=== PATIENT | male | born 1975 | race African-American/Black ===

== ENCOUNTER 2019-09-09 16:40 | Emergency (ER) | payer MEDICAID ==
[~2019-09-09] VITALS: Ht 182.9 cm; Wt 76.0 kg
[2019-09-09 17:09] VITALS: BP 131/83
== END 2019-09-09 17:10 | disposition home or self-care (01) ==
LOC: ER 16:40
DX: J45.909 Unspecified asthma, uncomplicated (principal)
CPT/HCPCS: 99282; 99283

== ENCOUNTER 2019-10-12 15:53 | Emergency (ER) | payer MEDICAID ==
[~2019-10-12] VITALS: Ht 182.9 cm; Wt 79.0 kg
[2019-10-12 16:06] VITALS: BP 130/78
[2019-10-12] MEDS ORDERED: ALBU18HF2 IH (16:08)
[2019-10-12] MEDS ORDERED: ALBUTEROL 6.7GM HFA INHALER ORI ONE (16:45)
[2019-10-12] MEDS ORDERED: PREDNISONE 20MG TABLET PO ONE (16:45)
== END 2019-10-12 17:18 | disposition home or self-care (01) ==
LOC: ER 15:53
DX: Z76.0 Encounter for issue of repeat prescription (principal); J45.901 Unspecified asthma with (acute) exacerbation
CPT/HCPCS: 99283; Z7610

== ENCOUNTER 2019-12-08 09:14 | Emergency (ER) | payer SELFPAY ==
[~2019-12-08] VITALS: Ht 182.9 cm; Wt 80.0 kg
[~2019-12-08 09:14] MED LIST: ALBU18HF2 IH
[2019-12-08 09:22] VITALS: BP 152/97
== END 2019-12-08 10:13 | disposition home or self-care (01) ==
LOC: ER 09:14
DX: J45.909 Unspecified asthma, uncomplicated (principal); Z76.0 Encounter for issue of repeat prescription
CPT/HCPCS: 99283

== ENCOUNTER 2020-01-09 07:54 | Emergency (ER) | payer MEDICAID ==
[~2020-01-09] VITALS: Ht 182.9 cm; Wt 80.0 kg
[2020-01-09 09:04] VITALS: BP 127/88
== END 2020-01-09 09:06 | disposition home or self-care (01) ==
LOC: ER 07:54
DX: Z76.0 Encounter for issue of repeat prescription (principal); J45.909 Unspecified asthma, uncomplicated
CPT/HCPCS: 99283

== ENCOUNTER 2020-04-28 16:56 | Emergency (ER) | payer MEDICAID ==
[~2020-04-28] VITALS: Ht 182.9 cm; Wt 78.0 kg
[2020-04-28] MEDS ORDERED: ALBUTEROL 6.7GM HFA INHALER ORI ONE (17:30)
[2020-04-28 18:11] VITALS: BP 129/64
== END 2020-04-28 18:18 | disposition home or self-care (01) ==
LOC: ER 17:10
DX: Z76.0 Encounter for issue of repeat prescription (principal); J45.909 Unspecified asthma, uncomplicated
CPT/HCPCS: 99283; Z7610

== ENCOUNTER 2020-06-25 05:03 | Emergency (ER) | payer MEDICAID ==
[~2020-06-25] VITALS: Ht 182.9 cm; Wt 79.0 kg
[2020-06-25 05:22] VITALS: BP 117/84
[2020-06-25] MEDS ORDERED: ALBU6.7H9 INH (05:29)
[2020-06-25] MEDS ORDERED: ALBU05 NEB (05:29)
== END 2020-06-25 05:39 | disposition home or self-care (01) ==
LOC: ER 05:13
DX: J45.901 Unspecified asthma with (acute) exacerbation (principal); R03.0 Elevated blood-pressure reading, without diagnosis of hypertension; Z76.0 Encounter for issue of repeat prescription; Z87.891 Personal history of nicotine dependence
CPT/HCPCS: 99283

== ENCOUNTER 2020-08-07 17:16 | Emergency (ER) | payer MEDICAID ==
[~2020-08-07] VITALS: Ht 182.9 cm; Wt 77.0 kg
[~2020-08-07 17:16] MED LIST changes: +ALBU05 NEB; +ALBU6.7H9 INH
[2020-08-07] MEDS ORDERED: ALBU2.5V13 NEB (18:25)
[2020-08-07] MEDS ORDERED: ALBU6.7H9 INH (18:25)
[2020-08-07 18:40] VITALS: BP 157/97
== END 2020-08-07 18:41 | disposition home or self-care (01) ==
LOC: ER 17:38
DX: Z76.0 Encounter for issue of repeat prescription (principal); J45.909 Unspecified asthma, uncomplicated; F17.200 Nicotine dependence, unspecified, uncomplicated
CPT/HCPCS: 99283

== ENCOUNTER 2020-11-09 11:31 | Emergency (ER) | payer MEDICAID ==
[~2020-11-09] VITALS: Ht 182.9 cm; Wt 85.0 kg
[~2020-11-09 11:31] MED LIST changes: +ALBU2.5V13 NEB
[2020-11-09 11:52] VITALS: BP 150/99
[2020-11-09] MEDS ORDERED: ALBU2.5V13 NEB (12:28)
[2020-11-09] MEDS ORDERED: ALBU6.7H9 INH (12:28)
== END 2020-11-09 12:54 | disposition home or self-care (01) ==
LOC: ER 12:11
DX: Z76.0 Encounter for issue of repeat prescription (principal); J45.909 Unspecified asthma, uncomplicated
CPT/HCPCS: 99283

== ENCOUNTER 2021-03-05 04:49 | Emergency (ER) | payer MEDICAID ==
[~2021-03-05] VITALS: Ht 182.9 cm; Wt 79.0 kg
[2021-03-05 04:56] VITALS: BP 129/66
[2021-03-05] MEDS ORDERED: ALBU6.7H9 INH (05:15)
[2021-03-05] MEDS ORDERED: ALBU2.5V13 NEB (05:15)
== END 2021-03-05 05:43 | disposition home or self-care (01) ==
LOC: ER 05:19
DX: Z76.0 Encounter for issue of repeat prescription (principal); J45.909 Unspecified asthma, uncomplicated
CPT/HCPCS: 99281; 99283

== ENCOUNTER 2022-02-06 04:54 | Emergency (ER) | payer MEDICAID ==
[~2022-02-06] VITALS: Ht 180.3 cm; Wt 79.5 kg
[2022-02-06 05:00] VITALS: BP 134/82
[2022-02-06] MEDS ORDERED: ALBU05 NEB (05:14)
[2022-02-06] MEDS ORDERED: ALBU6.7H9 INH (05:14)
== END 2022-02-06 05:24 | disposition home or self-care (01) ==
LOC: ER 04:54
DX: Z76.0 Encounter for issue of repeat prescription (principal)
CPT/HCPCS: 99281

== ENCOUNTER 2023-04-28 21:52 | Emergency (ER) | payer MEDICAID, OTHER ==
[~2023-04-28] VITALS: Ht 182.9 cm; Wt 80.0 kg
[~2023-04-28 21:52] MED LIST changes: +ALBU6.7H3 INH; -ALBU6.7H9 INH
[2023-04-28 22:37] VITALS: BP 148/87
[2023-04-29] MEDS ORDERED: IPRATROPIUM BROMIDE (0.02%) 0.5MG/2.5ML NEB HHN STA (00:10)
[2023-04-29] MEDS ORDERED: PREDNISONE 20MG TABLET PO STA (00:10)
[2023-04-29] MEDS ORDERED: ALBUTEROL (0.083%) 2.5MG/3ML NEB HHN STA (00:10)
[2023-04-29 00:26] VITALS: PULSE 62; RESP 20; O2SAT 97
[2023-04-29] MEDS ORDERED: P20 MT (00:33)
[2023-04-29] MEDS ORDERED: ALBU6.7H15 INH (00:33)
[2023-04-29] MEDS ORDERED: ALBU05 NEB (00:33)
[2023-04-29 01:04] VITALS: PULSE 62; RESP 20; TEMP 98.5
== END 2023-04-29 01:05 | disposition home or self-care (01) ==
LOC: ER 21:52
DX: J45.901 Unspecified asthma with (acute) exacerbation (principal)
CPT/HCPCS: 94640; 99283; Z7610 ×3; J7512